=== PATIENT | male | born 1950 | race Caucasian/White ===

== ENCOUNTER 2016-12-09 20:42 | Observation (INO) | payer MEDICARE ==
[~2016-12-09] VITALS: Ht 180.3 cm; Wt 76.0 kg
[~2016-12-09 20:42] MED LIST: ADAL1INJ; CIAL20TA PO; LISI10TA PO
[2016-12-09 20:44] VITALS: BP 142/77; PULSE 85; RESP 20; TEMP 98; O2SAT 98
[2016-12-09] MEDS ORDERED: HUMI40KI SQ (20:51)
[2016-12-09] MEDS ORDERED: CIAL20TA PO (20:51)
[2016-12-09 21:01] VITALS: RESP 20; O2SAT 98
--- NOTE | 2016-12-09 21:01 | PD ---
HPI Chief Complaint: Syncope/Near-Syncope Time Seen by Provider: 20:53 Travel History International Travel<30 days: No Contact w/Intl Traveler<30days: No Traveled to known affect area: No History of Present Illness HPI The patient is a 66 year old male who presents to the [facility] emergency department with a history of lightheaded sensation and diaphoresis that began suddenly when he was out playing golf today. He reports that at approximately 11 AM, he had his last meal which consisted of a breakfast sandwich. He reports that at noon he had 2 alcoholic beverages and none since then. He reports that normally he eats dinner around 5:00, however he did not eat his dinner today. The patient proceeded to have 3 witnessed syncopal events. The third witnessed event was in front of ambulance services. The patient's initial blood pressure on arrival was in the 90s systolic. 2 IVs were placed in bilateral upper extremities and the patient was started on normal saline wide open. The patient reports that he began to feel better when he got into the air conditioning of the ambulance. He denies having any chest pain, chest pressure, shortness of breath, palpitations, nausea, vomiting, or diarrhea. He reports that he did have 2 softer than usual stools earlier today. He denies having any blood in his stool or black or tarry stools. Otherwise, on review of systems, he denies any recent fevers, cough, congestion, neck pain, abdominal pain, urinary symptoms, one-sided weakness, slurred speech, difficulty with word finding ability, vision changes, facial droop, or numbness or tingling to his extremities. [facility] Past Medical History Narrative Medical The patient's past medical history is significant for psoriasis for which she has been on Humira for the last 3 years, history of hypertension currently on lisinopril. He denies having any recent changes in the dose. 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 Cardiovascular Problems: Yes (HTN) Past Surgical History Narrative Surgical The patient's past surgical history is significant for Social History Alcohol Use: Yes Tobacco Use: No Substance Use: No Allergies-Medications (Allergen,Severity, Reaction): Coded Allergies: Tetanus Toxoid (Verified Allergy, Severe, SWELLING INJECTION SITE, 12/09/16 ) Reported Meds & Prescriptions Reported Meds & Active Scripts Active Lisinopril-Hctz 10-12.5 Mg Tab 1 Tab PO DAILY Reported Cialis (Tadalafil) 20 Mg Tab 20 Mg PO DAILY PRN Do not exceed 1 dose/day. Humira 2-Pack Inj (Adalimumab 2-Pack Inj) 40 Mg/0.8 Ml Syr 40 Mg SQ Q14D Review of Systems Except as stated in HPI: all other systems reviewed are Neg General / Constitutional: No: Fever Eyes: No: Visual changes HENT: No: Headaches Cardiovascular: Positive: Diaphoresis, Syncope, No: Chest Pain or Discomfort Respiratory: No: Shortness of Breath Gastrointestinal: No: Abdominal Pain Genitourinary: No: Dysuria Musculoskeletal: No: Pain Skin: No Rash Neurologic: Positive: Weakness (generalized weakness prior to syncope), Dizziness, Syncope, No: Focal Abnormalities, Change in Mentation, Slurred Speech, Sensory Disturbance Psychiatric: No: Depression Endocrine: No: Polydipsia Hematologic/Lymphatic: No: Easy Bruising Physical Exam Narrative General: The patient is a well-developed well-nourished male in no acute distress. Head and Neck exam: Head is normocephalic atraumatic. Eyes: EOMI, pupils are equal round and reactive to light. Nose: Midline septum with pink mucous membranes Mouth: Dentition unremarkable. Moist mucus membranes. Posterior oropharynx is not erythematous. No tonsillar hypertrophy. Uvula midline. Airway patent. Neck: No palpable lymphadenopathy. No nuchal rigidity. No thyromegaly. Cardiovascular: Regular rate and rhythm without murmurs, gallops, or rubs. No pulse deficit to the extremities and simultaneous auscultation and palpation of his radial artery. Lungs: Clear to auscultation bilaterally. No wheezes, rhonchi, or rales. Abdomen: Soft, without tenderness to palpation in all 4 quadrants of the abdomen. No guarding, rebound, or rigidity. Normal bowel sounds are audible. No tenderness on palpation of McBurney's point. Negative [place] sign. Extremities: No clubbing, cyanosis, or edema. 2+ pulses in all 4 extremities. No calf tenderness on palpation. Back: No spinous process tenderness to palpation. No costovertebral angle tenderness to palpation. Neurologic Exam: Grossly nonfocal. Skin Exam: No rash noted. Intact skin that is warm and dry. Data Data Last Documented VS Vital Signs Date Time Temp Pulse Resp B/P Pulse Ox O2 Delivery O2 Flow Rate FiO2 12/09/16 22:00 78 20 130/80 98 Room Air 12/09/16 20:44 98.0 Orders Electrocardiogram (12/09/16 20:53) Complete Blood Count With Diff (12/09/16 20:53) Comprehensive Metabolic Panel (12/09/16 20:53) Creatine Kinase (Cpk) (12/09/16 20:53) Ckmb (Isoenzyme) Profile (12/09/16 20:53) Troponin I (12/09/16 20:53) B-Type Natriuretic Peptide (12/09/16 20:53) Prothrombin Time / Inr (Pt) (12/09/16 20:53) Act Partial Throm Time (Ptt) (12/09/16 20:53) Lipase (12/09/16 20:53) Urinalysis - C+S If Indicated (12/09/16 20:53) D-Dimer (12/09/16 20:53) Magnesium (Mg) (12/09/16 20:53) Thyroid Stimulating Hormone (12/09/16 20:53) Chest, Single Ap (12/09/16 20:53) Iv Access Insert/Monitor (12/09/16 20:53) Ecg Monitoring (12/09/16 20:53) Oximetry (12/09/16 20:53) Potassium Chloride (Kcl) (12/09/16 22:00) Sodium Chlor 0.9% 1000 Ml Inj (Ns 1000 M (12/09/16 22:00) Admit Order (Ed Use Only) (12/09/16 22:34) Alcohol (Ethanol) (12/09/16 21:00) Labs Laboratory Tests Test 12/09/16 12/09/16 21:00 21:12 White Blood Count 6.9 TH/MM3 Red Blood Count 3.87 MIL/MM3 Hemoglobin 13.3 GM/DL Hematocrit 38.8 % Mean Corpuscular Volume 100.2 FL Mean Corpuscular Hemoglobin 34.3 PG Mean Corpuscular Hemoglobin 34.2 % Concent Red Cell Distribution Width 12.7 % Platelet Count 173 TH/MM3 Mean Platelet Volume 7.6 FL Neutrophils (%) (Auto) 65.8 % Lymphocytes (%) (Auto) 23.1 % Monocytes (%) (Auto) 8.0 % Eosinophils (%) (Auto) 2.2 % Basophils (%) (Auto) 0.9 % Neutrophils # (Auto) 4.5 TH/MM3 Lymphocytes # (Auto) 1.6 TH/MM3 Monocytes # (Auto) 0.5 TH/MM3 Eosinophils # (Auto) 0.2 TH/MM3 Basophils # (Auto) 0.1 TH/MM3 CBC Comment DIFF FINAL Differential Comment Sodium Level 136 MEQ/L Potassium Level 3.4 MEQ/L Chloride Level 100 MEQ/L Carbon Dioxide Level 27.5 MEQ/L Anion Gap 9 MEQ/L Blood Urea Nitrogen 9 MG/DL Creatinine 0.99 MG/DL Estimat Glomerular Filtration 76 ML/MIN Rate Random Glucose 111 MG/DL Calcium Level 8.8 MG/DL Magnesium Level 1.7 MG/DL Total Bilirubin 0.5 MG/DL Aspartate Amino Transf 20 U/L (AST/SGOT) Alanine Aminotransferase 21 U/L (ALT/SGPT) Alkaline Phosphatase 50 U/L Total Creatine Kinase 40 U/L Troponin I LESS THAN 0.02 NG/ML B-Type Natriuretic Peptide 18 PG/ML Total Protein 6.6 GM/DL Albumin 3.3 GM/DL Lipase 126 U/L Thyroid Stimulating Hormone 1.550 uIU/ML 3rd Gen Ethyl Alcohol Level 4 MG/DL Prothrombin Time 11.4 SEC Prothromb Time International 1.0 RATIO Ratio Activated Partial 25.3 SEC Thromboplast Time D-Dimer Quantitative (PE/DVT) 0.37 MG/L [facility]U [facility] Medical Decision Making Medical Screen Exam Complete: Yes Emergency Medical Condition: Yes Medical Record Reviewed: Yes Interpretation(s) Last Impressions Chest X-Ray 12/09/162052 Signed Impressions: Service Date/Time: Friday, December 09, 2016 20:49 - CONCLUSION: No acute disease. Finesse Whitley MD Differential Diagnosis Cardiac arrhythmia, versus orthostatic hypotension, versus vasovagal syncope, versus acute coronary syndrome Narrative Course During the course of the patients emergency department visit, the patients history, examination, and differential diagnosis were reviewed with the patient. The patient had IV access obtained and blood work sent for analysis. The patient was placed on a personnel monitor with oximetry and blood pressure monitoring. An ECG was done on arrival. The patient's ECG reveals a sinus rhythm heart rate of 84, nonspecific ST-T wave abnormalities, ST downsloping in V1, V2, T waves inverted in V1. QRS duration is 94 ms, QTC 422 ms. orthostatic vital signs were done and reportedly negative. The patient was provided by ambulance services 162 mg of aspirin by mouth, normal saline wide open. The patients laboratory studies were reviewed and remarkable for a white count of 6.9, hemoglobin 13.3, platelets 173 with a normal differential, CMP is remarkable for potassium of 3.4 which was supplemented orally, glucose 111, CPK 40, troponin I less than 0.02, BNP is 18, albumin 3.3, lipase 126, TSH 1.55, PT 11.4, PTT 25.3, d-dimer 0.37 decreased the likelihood of pulmonary embolism in this patient with no other significant risk factors Radiology studies were reviewed and remarkable for a chest x-ray that shows no acute disease. The patient will be admitted to the hospital for evaluation of recurrent syncopal events. The patients results were discussed with the patient, including the plan of care. I explained that further testing and/ or monitoring is indicated based on the patients history, examination, and/ or laboratory findings. Therefore, I recommended admission for additional evaluation. The patient expressed understanding and was agreeable with this plan. The patient was admitted to the hospital in stable condition and sent to a bed under the care of the family practice residents as the patient is followed by them for his primary care. Physician Communication Physician Communication The patient's case was discussed with the family practice residents who did agree to admit the patient for further evaluation and treatment at this time. Diagnosis Primary Impression: Syncope and collapse Admitting Information Admitting Physician Requests: Observation Cleopatra Watson MD Dec 09, 2016 21:01
[2016-12-09 21:02] VITALS: BP_SYST 122; BP_SYST 124; BP_SYST 127; BP_DIAS 66; BP_DIAS 69; BP_DIAS 74; RESP 20; RESP 26; RESP 27
--- NOTE | 2016-12-09 21:07 | RADRPT ---
EXAM DATE/TIME: 12/09/2016 20:49 [facility] COMPARISON: No previous studies available for comparison. INDICATIONS : Syncope MEDICAL HISTORY : None. SURGICAL HISTORY : None. ENCOUNTER: Initial ACUITY: 1 day PAIN SCORE: 0/10 LOCATION: chest FINDINGS: A single view of the chest demonstrates the lungs to be symmetrically aerated without evidence of mas s, infiltrate or effusion. The cardiomediastinal contours are unremarkable. Osseous structures are intact. CONCLUSION: No acute disease. Finesse Whitley MD on December 09, 2016 at 21:04 Board Certified Radiologist. This report was verified electronically.
[2016-12-09 21:16] LABS: AUTOMATED NEUTROPHIL # 4.5 TH/MM3 (1.8-7.7); BASOPHIL # 0.1 TH/MM3 (0-0.2); BASOPHIL % 0.9 % (0.0-2.0); EOSINOPHIL # 0.2 TH/MM3 (0-0.4); EOSINOPHIL % 2.2 % (0.0-4.0); HEMATOCRIT 38.8 % (39.0-51.0); HEMO FLAGS DIFF FINAL; LYMPH % 23.1 % (9.0-44.0); LYMPHOCYTE # 1.6 TH/MM3 (1.0-4.8); MEAN CELL VOLUME 100.2 FL (80.0-100.0); MEAN CORPUSCULAR HEMOGLOBIN 34.3 PG (27.0-34.0); MEAN CORPUSCULAR HGB CONC 34.2 % (32.0-36.0); NEUT % 65.8 % (16.0-70.0); PLATELET COUNT 173 TH/MM3 (150-450); RED BLOOD COUNT 3.87 MIL/MM3 (4.50-5.90); RED CELL DISTRIBUTION WIDTH 12.7 % (11.6-17.2); WHITE BLOOD COUNT 6.9 TH/MM3 (4.0-11.0)
[2016-12-09 21:42] LABS: ALT (GPT) 21 U/L (12-78); ANION GAP 9 MEQ/L (5-15); AST (GOT) 20 U/L (15-37); BICARBONATE 27.5 MEQ/L (21.0-32.0); BLOOD UREA NITROGEN 9 MG/DL (7-18); CHLORIDE 100 MEQ/L (98-107); GLOMERULAR FILTRATION RATE 76 ML/MIN (>89); MAGNESIUM 1.7 MG/DL (1.5-2.5); POTASSIUM 3.4 MEQ/L (3.5-5.1); SODIUM (NA) 136 MEQ/L (136-145)
[2016-12-09 21:52] LABS: ALKALINE PHOSPHATASE 50 U/L (45-117); TOTAL BILIRUBIN ADULT 0.5 MG/DL (0.2-1.0)
[2016-12-09 21:55] LABS: CREATINE KINASE 40 U/L (39-308)
[2016-12-09 22:00] VITALS: BP 130/80; PULSE 78; RESP 20; O2SAT 98
[2016-12-09] MEDS ORDERED: SODIUM CHLOR 0.9% 1000 ML INJ 1,000 ML IV ONE (22:00)
[2016-12-09] MEDS ORDERED: POTASSIUM CHLORIDE 20 MEQ CONTROLLED RELEASE TAB PO ONE (22:00)
[2016-12-09 22:02] LABS: APTT (PATIENT) 25.3 SEC (24.3-30.1); PROTHROMBIN TIME - PATIENT 11.4 SEC (9.8-11.6)
[2016-12-09 23:00] VITALS: BP 157/82; PULSE 78; RESP 22; O2SAT 97
[2016-12-09 23:08] VITALS: O2SAT 98
--- NOTE | 2016-12-09 23:14 | HHI.HP ---
[facility] Service Family Medicine Primary Care Physician Sg Hamitlon MD Admission Diagnosis Recurrent Syncopal events today Diagnoses: Chief Complaint: got overheated while playing putt-putt golf International Travel<30 Days: No Contact w/Intl Traveler<30days: No Known Affected Area: No History of Present Illness 66 YO male w/PMHx psoriasis, HTN, left IT band syndrome, diverticulosis and alcohol use presents with multiple syncopal events after getting lightheaded and diaphoretic while playing putt-putt golf today. Pt admits to drinking one beer w/o eating today when he began feeling lightheaded and sat down on a bench , then skinned his knees after standing and getting lightheaded again, but did not hit his head or lose consciousness. States he has had one pre-syncopal and one syncopal episode in the past. The first was exertional when he was exercising in the gym; the second occurred when he was arguing with his girlfriend on the phone and passed out. Pt endorses drinking 2-3 beers per day but states he prefers 6 oz of spiced rum during the day. Admits to drinking one beer and one mimosa this morning. Pt has no reported seizure activity. Pt gets regular checkups and labs drawn with his Humira and notes no blood problems. Last Humira shot on Sat; took HCTZ-lisinopril this morning; last Cialis was a couple of weeks ago (takes ~1x per month); takes OTC turmeric for IT band pain. Denies CP, SOB, palpitations, N/V/D, dark, tarry stools, blood during a BM, and dysuria. Transported to ED after 3x syncopal episodes. Given 1L NS and 20 meq KCL in ED, ASA 162 mg during transport. ECG in ED shows ST and T wave abnormalities with some minor depression. EtOH @ 4. Pt conversant and in NAD in ED, with slightly elevated BP in 157/82 range, other VS wnl. Review of Systems Constitutional: COMPLAINS OF: Diaphoretic episodes, Dizziness Endocrine: DENIES: Heat/cold intolerance, Polydipsia, Polyuria, Polyphagia Eyes: DENIES: Blurred vision, Diplopia, Eye inflammation, Eye pain, Vision loss , Photosensitivity, Double Vision Ears, nose, mouth, throat: DENIES: Tinnitus, Hearing loss, Vertigo, Nasal discharge, Oral lesions, Throat pain, Hoarseness, Ear Pain, Running Nose, Epistaxis, Sinus Pain, Toothache, Odynophagia Respiratory: DENIES: Apneas, Cough, Snoring, Wheezing, Hemoptysis, Sputum production, Shortness of breath Cardiovascular: DENIES: Chest pain, Palpitations, Syncope, Dyspnea on Exertion , PND, Lower Extremity Edema, Orthopnea, Claudication Gastrointestinal: DENIES: Abdominal pain, Black stools, Bloody stools, Constipation, Diarrhea, Nausea, Vomiting, Difficulty Swallowing, Anorexia Genitourinary: DENIES: Sexual dysfunction, Urinary frequency, Urinary incontinence, Urgency, Hematuria, Dysuria, Nocturia, Penile Discharge, Testicular Pain, Testicular Swelling Musculoskeletal: COMPLAINS OF: Joint pain (Left IT band pain) Integumentary: DENIES: Abnormal pigmentation, Nail changes, Pruritus, Rash Hematologic/lymphatic: DENIES: Bruising, Lymphadenopathy Neurologic: DENIES: Abnormal gait, Headache, Localized weakness, Paresthesias, Seizures, Speech Problems, Tremor, Poor Balance Psychiatric: DENIES: Anxiety, Confusion, Mood changes, Depression, Hallucinations, Agitation, Suicidal Ideation, Homicidal Ideation, Delusions Past Family Social History Past Surgical History Right leg Allergies: Coded Allergies: Tetanus Toxoid (Verified Allergy, Severe, SWELLING INJECTION SITE, 12/09/16 ) Family History Mom age 76 - ovarian cancer Father age 62 - lung cancer Social History EtOH - 2-3 beers per day Tobacco - former smoker, stopped 12 yrs ago Other drugs - no Physical Exam Vital Signs Vital Signs Date Time Temp Pulse Resp B/P Pulse Ox O2 Delivery O2 Flow Rate FiO2 12/09/16 21:09 Room Air 12/09/16 21:02 81 20 127/66 79 26 122/69 89 27 124/74 12/09/16 21:01 20 98 Room Air 12/09/16 20:44 98.0 85 20 142/77 98 Physical Exam GENERAL: This is a well-nourished, well-developed patient, in no apparent distress. SKIN: No rashes or ecchymoses. Cool and dry. Bilateral knee abrasions from fall today. HEAD: Atraumatic. Normocephalic. EYES: Pupils equal round and reactive. Extraocular motions intact. No scleral icterus. No injection or drainage. ENT: Nose without bleeding or drainage. MMM. NECK: Trachea midline. No JVD or lymphadenopathy. No meningeal signs. CARDIOVASCULAR: RRR without murmurs, gallops, or rubs. RESPIRATORY: Clear to auscultation. Breath sounds equal bilaterally w/no increased WOB. No wheezes, rales, or rhonchi. GASTROINTESTINAL: Abdomen soft, non-tender, nondistended. No hepato-splenomegaly , or palpable masses. No guarding. MUSCULOSKELETAL: Extremities without clubbing, cyanosis, or edema. No joint tenderness, effusion, or edema noted. No calf tenderness. NEUROLOGICAL: Awake and alert. Cranial nerves II through XII intact. Motor and sensory grossly within normal limits. Normal speech. Laboratory Laboratory Tests Test 12/09/16 12/09/16 21:00 21:12 White Blood Count 6.9 Red Blood Count 3.87 Hemoglobin 13.3 Hematocrit 38.8 Mean Corpuscular Volume 100.2 Mean Corpuscular Hemoglobin 34.3 Mean Corpuscular Hemoglobin 34.2 Concent Red Cell Distribution Width 12.7 Platelet Count 173 Mean Platelet Volume 7.6 Neutrophils (%) (Auto) 65.8 Lymphocytes (%) (Auto) 23.1 Monocytes (%) (Auto) 8.0 Eosinophils (%) (Auto) 2.2 Basophils (%) (Auto) 0.9 Neutrophils # (Auto) 4.5 Lymphocytes # (Auto) 1.6 Monocytes # (Auto) 0.5 Eosinophils # (Auto) 0.2 Basophils # (Auto) 0.1 CBC Comment DIFF FINAL Differential Comment Sodium Level 136 Potassium Level 3.4 Chloride Level 100 Carbon Dioxide Level 27.5 Anion Gap 9 Blood Urea Nitrogen 9 Creatinine 0.99 Estimat Glomerular Filtration 76 Rate Random Glucose 111 Calcium Level 8.8 Magnesium Level 1.7 Total Bilirubin 0.5 Aspartate Amino Transf 20 (AST/SGOT) Alanine Aminotransferase 21 (ALT/SGPT) Alkaline Phosphatase 50 Total Creatine Kinase 40 Troponin I LESS THAN 0.02 B-Type Natriuretic Peptide 18 Total Protein 6.6 Albumin 3.3 Lipase 126 Thyroid Stimulating Hormone 1.550 3rd Gen Prothrombin Time 11.4 Prothromb Time International 1.0 Ratio Activated Partial 25.3 Thromboplast Time D-Dimer Quantitative (PE/DVT) 0.37 Result Diagram: 12/09/16209912/09/162099 Septic Shock Reassessment Heart: Regular rate and rhythm Lungs: Clear Skin: Warm, Dry Peripheral Pulses: Weak Left Radial Capillary Refill: <2 seconds Assessment and Plan Assessment and Plan 66 YO male w/PMHx psoriasis, HTN, left IT band syndrome, diverticulosis and alcohol use presents with multiple syncopal events today of unclear etiology. Consider ACS r/o vs dehydration (hypovolemia) vs carotid stenosis vs new onset transient arrhythmia vs vasovagal event. - FEN/GI: Heart healthy diet - Ppx: SCDs, Lovenox 40 mg, KCL 20 meq for K+ @ 3.4 -- Check CMP, CBC in AM - Dispo: home Plan dw Dr Corky Lema Code Status Full Problem List: (1) Syncope and collapse Status: Acute Plan: - ACS r/o--abnormal ECG, but asymptomatic w/o CP or palpitations -- Trend trops (1st neg at 0.02 @ 2100 hrs) -- Abnormal ECG w/ST and T wave depression -- Echo 2D ordered -- ASA 162 mg PO given during transport by EMS -- No CP, morphine and nitro ordered PRN for now -- Satting 98% on RA, supplemental O2 ordered PRN for now -- Continuous telemetry during OBS -- Consider Holter monitor as outpt - Carotid stenosis -- Carotid artery US - Vasovagal event -- Consider Holter monitor as indicated above (2) Alcohol abuse Status: Acute Plan: - EtOH in ED @ 4 - AST/ALT both wnl; INR 1.0 - Place on CIWA as precaution (3) Benign essential hypertension Status: Chronic Plan: - Pt took HCTZ-lisinopril this morning w/o any other fluids except 1 beer and 1 mimosa - NS 1L bolus in ED - BP 130/80 @ 2200 - Continue HCTZ-lisinopril (4) IT band syndrome Status: Acute Plan: - PT/OT to assess Problem Qualifiers (1) IT band syndrome: Qualified Code: M76.32 - IT band syndrome, left Blanke,Rob Caputo MD R1 Dec 09, 2016 23:14
[2016-12-09] MEDS ORDERED: DOCUSATE SODIUM 50 MG/SENNA 8.6 MG TAB PO PRN (23:15)
[2016-12-09] MEDS ORDERED: ACETAMINOPHEN 325 MG TAB PO PRN (23:15)
[2016-12-09] MEDS ORDERED: ONDANSETRON HCL 4 MG/2 ML VIAL IV PRN (23:15)
[2016-12-09] MEDS ORDERED: SODIUM CHLORIDE 0.9% FLUSH 10 ML FLUSH IV FLUSH PRN (23:15)
[2016-12-09] MEDS ORDERED: cloNIDine HCL 0.1 MG TAB PO PRN (23:30)
[2016-12-09] MEDS ORDERED: LORazepam 1 MG TAB PO PRN (23:30)
[2016-12-09] MEDS ORDERED: LORazepam 2 MG TAB PO PRN (23:30)
[2016-12-09] MEDS ORDERED: NITROGLYCERIN 0.4 MG SL 25 TABS/BTL SL PRN (23:30)
[2016-12-09] MEDS ORDERED: LORazepam 2 MG/ML VIAL IV PUSH PRN ×4 (23:30)
[2016-12-09] MEDS ORDERED: FLUMAZENIL 0.5 MG/5 ML VIAL IV PUSH PRN (23:30)
[2016-12-09] MEDS ORDERED: MORPHINE SULFATE 4 MG/ML INJ IV PRN (23:30)
[2016-12-10] VITALS (8 sets, daily range): BP systolic 98–138; BP diastolic 59–69; PULSE 68–79; RESP 14–20; TEMP 97.9–98.2; O2SAT 92–99
[2016-12-10 00:28] LABS: BACTERIA, URINE RARE /hpf; BLOOD, URINE NEG (NEG); GLUCOSE,URINE NEG (NEG); HYALINE CAST, URINE 11 /lpf (RARE); KETONE, URINE NEG (NEG); MUCUS URINE FEW /lpf (OCC); NITRITE,URINE NEG (NEG); SQUAMOUS EPITHELIAL CELL URINE <1 /hpf (0-5); URINE COLOR YELLOW (YELLW/STRAW)
[2016-12-10 00:29] LABS: COMMENT (UR) CULT NOT INDICATED; CULTURE IF INDICATED CULT NOT INDICATED
[2016-12-10 00:51] LABS: AMPHETAMINE, URINE NEG (NEG); BARBITURATES, URINE NEG (NEG); COCAINE, URINE NEG (NEG)
[2016-12-10 04:53] LABS: CREATINE KINASE 47 U/L (39-308)
--- NOTE | 2016-12-10 07:00 | EKG ---
Date Performed: 12/09/2016 Time Performed: 20:51:25 PTAGE: 66 years EKG: Sinus rhythm NORMAL ECG NO PREVIOUS TRACING DOCTOR: Richard Wills Interpretating Date/Time 12/10/2016 06:59:13
[2016-12-10 07:18] LABS: AUTOMATED NEUTROPHIL # 5.1 TH/MM3 (1.8-7.7); BASOPHIL % 0.6 % (0.0-2.0); EOSINOPHIL # 0.1 TH/MM3 (0-0.4); EOSINOPHIL % 1.4 % (0.0-4.0); HEMATOCRIT 36.7 % (39.0-51.0); HEMO FLAGS DIFF FINAL; LYMPH % 16.7 % (9.0-44.0); LYMPHOCYTE # 1.2 TH/MM3 (1.0-4.8); MEAN CELL VOLUME 100.1 FL (80.0-100.0); MEAN CORPUSCULAR HEMOGLOBIN 34.6 PG (27.0-34.0); MEAN CORPUSCULAR HGB CONC 34.6 % (32.0-36.0); MONO % 8.6 % (0.0-8.0); NEUT % 72.7 % (16.0-70.0); PLATELET COUNT 153 TH/MM3 (150-450); RED BLOOD COUNT 3.67 MIL/MM3 (4.50-5.90); RED CELL DISTRIBUTION WIDTH 12.8 % (11.6-17.2); WHITE BLOOD COUNT 6.9 TH/MM3 (4.0-11.0)
[2016-12-10 07:47] LABS: ANION GAP 9 MEQ/L (5-15); AST (GOT) 19 U/L (15-37); BICARBONATE 25.6 MEQ/L (21.0-32.0); BLOOD UREA NITROGEN 8 MG/DL (7-18); CHLORIDE 103 MEQ/L (98-107); GLOMERULAR FILTRATION RATE 115 ML/MIN (>89); MAGNESIUM 1.8 MG/DL (1.5-2.5); POTASSIUM 4.1 MEQ/L (3.5-5.1); SODIUM (NA) 138 MEQ/L (136-145)
[2016-12-10 07:50] LABS: ALKALINE PHOSPHATASE 52 U/L (45-117); ALT (GPT) 20 U/L (12-78); TOTAL BILIRUBIN ADULT 0.9 MG/DL (0.2-1.0)
--- NOTE | 2016-12-10 08:40 | EKG ---
Date Performed: 12/10/2016 Time Performed: 03:56:19 PTAGE: 66 years EKG: Sinus rhythm NORMAL ECG PREVIOUS TRACING : 12/09/2016 20.51 No significant change from previous tracing noted. DOCTOR: Richard Wills Interpretating Date/Time 12/10/2016 08:39:44
[2016-12-10] MEDS ORDERED: SODIUM CHLORIDE 0.9% FLUSH 10 ML FLUSH IV FLUSH SCH (09:00)
[2016-12-10] MEDS ORDERED: NON-FORMULARY DRUG (Lisinopril-Hctz 1 TAB) PO SCH (09:00)
[2016-12-10] MEDS ORDERED: THIAMINE HCL 100 MG TAB PO SCH (09:00)
[2016-12-10] MEDS ORDERED: FOLIC ACID 1 MG TAB PO SCH (09:00)
[2016-12-10] MEDS ORDERED: MULTIVITAMINS/MINERALS THERAPEUTIC TAB PO SCH (09:00)
[2016-12-10] MEDS ORDERED: LISINOPRIL 10 MG TAB PO SCH (09:00)
[2016-12-10] MEDS ORDERED: HYDROCHLOROTHIAZIDE 25 MG TAB PO SCH (09:00)
--- NOTE | 2016-12-10 09:16 | RADRPT ---
EXAM DATE/TIME: 12/10/2016 08:27 [facility] COMPARISON: No previous studies available for comparison. INDICATIONS : Syncope. MEDICAL HISTORY : Hypertension. SURGICAL HISTORY : Colectomy. Right leg surgery. ENCOUNTER: Initial ACUITY: 2 days PAIN SCORE: 0/10 LOCATION: Bilateral neck PEAK SYSTOLIC VELOCITIES (cm/sec): ICA/CCA RATIO: Right: 1.2 Left: 0.8 ICA: Right: 107 Left: 87 CCA: Right: 90 Left: 103 ECA: Right: 77 Left: 102 VERTEBRAL: Right: 36 antegrade Left: 56 antegrade Elevated flow velocities and ICA/CCA ratios have been found to correlate with increased degrees of vessel stenosis, calculated as percentage of diameter relative to a normal segment of distal ICA/CCA FINDINGS: RIGHT CAROTID: There is no evidence for a hemodynamically significant carotid stenosis. Minimal intimal hyperplasia is present with scattered calcific plaque. LEFT CAROTID: There is no evidence for a hemodynamically significant carotid stenosis. Minimal intimal hyperplasia is present with scattered calcific plaque. VERTEBRAL ARTERIES: Flow is antegrade in both vertebral arteries. MISCELLANEOUS: There are no ancillary masses or adenopathy. CONCLUSION: Negative examination for a hemodynamically significant carotid stenosis. Kevin Macdonald MD FACR. Kevin Macdonald MD FACR on December 10, 2016 at 9:14 Board Certified Radiologist. This report was verified electronically.
[2016-12-10] MEDS ORDERED: ENOXAPARIN SODIUM 40 MG/0.4 ML SYRINGE SQ SCH (10:00)
--- NOTE | 2016-12-10 13:41 | HHI.DCPOC ---
Discharge Care Plan Diagnosis: (1) Syncope and collapse Goals to Promote Your Health * To prevent worsening of your condition and complications * To maintain your health at the optimal level Follow up with PCP Directions to Meet Your Goals Take your medications as prescribed Follow your dietary instruction Follow activity as directed Keep your appointments as scheduled Take your immunizations and boosters as scheduled If your symptoms worsen call your PCP, if no PCP go to Urgent Care Center or Emergency Room Smoking is Dangerous to Your Health. Avoid second hand smoke Call the 24-hour hour crisis hotline for domestic abuse at Sanchez Marx MD R2 Dec 10, 2016 13:41
--- NOTE | 2016-12-10 13:44 | HHI.FPPN ---
Subjective Remarks Patient seen and examined this morning. Denies nausea, vomiting, fever, chills, chest pain, shortness of breath, change in bowel habits, change in urinary habits. No changes overnight. Patient denies any further lightheadedness, dizziness, loss of consciousness. Patient states that he has no other complaints at this time. He stated that he believes his syncope yesterday was due to being outside in the heat for such a long time with limited water intake. (Isaac Correa MD R1) Objective Vitals Vital Signs Date Time Temp Pulse Resp B/P Pulse Ox O2 Delivery O2 Flow Rate FiO2 12/10/16 12:38 98.1 74 15 98/59 99 12/10/16 08:01 92 21 12/10/16 08:00 68 12/10/16 07:18 97.9 69 14 112/65 95 12/10/16 04:10 68 12/10/16 03:48 98.2 77 18 122/69 97 12/10/16 01:49 74 12/10/16 01:33 98.1 79 20 138/69 98 12/09/16 23:08 98 12/09/16 23:00 78 22 157/82 97 Room Air 12/09/16 22:00 78 20 130/80 98 Room Air 12/09/16 21:09 Room Air 12/09/16 21:02 81 20 127/66 79 26 122/69 89 27 124/74 12/09/16 21:01 20 98 Room Air 12/09/16 20:44 98.0 85 20 142/77 98 (Isaac Correa MD R1) Result Diagram: 12/10/16 0605 12/10/16 0605 Imaging Last Impressions Carotid Artery Ultrasound 12/10/16 0000 Signed Impressions: Service Date/Time: Saturday, December 10, 2016 08:27 - CONCLUSION: Negative examination for a hemodynamically significant carotid stenosis. Kevin Macdonald MD Chest X-Ray 12/09/162052 Signed Impressions: Service Date/Time: Friday, December 09, 2016 20:49 - CONCLUSION: No acute disease. Finesse Whitley MD Objective Remarks GENERAL: Pleasant, seated, in no apparent distress. SKIN: Warm and dry. HEAD: Atraumatic. Normocephalic. EYES: Pupils equal and round. No scleral icterus. No injection or drainage. ENT: No nasal bleeding or discharge. Mucous membranes pink and moist. NECK: Trachea midline. No JVD. CARDIOVASCULAR: Regular rate and rhythm. RESPIRATORY: No accessory muscle use. Clear to auscultation. Breath sounds equal bilaterally. GASTROINTESTINAL: Abdomen soft, non-tender, nondistended. Hepatic and splenic margins not palpable. MUSCULOSKELETAL: Extremities without clubbing, cyanosis, or edema. No obvious deformities. NEUROLOGICAL: Awake and alert. No obvious cranial nerve deficits. Motor grossly within normal limits. Five out of 5 muscle strength in the arms and legs. Normal speech. PSYCHIATRIC: Appropriate mood and affect; insight and judgment normal. Medications and IVs Current Medications Medications (Trade) Dose Ordered Sig/Tarah Route Start Time Stop Time Status Last Admin (Prinivil) 10 mg DAILY PO 12/10/16 09:00 12/10/16 08:11 (Hydrodiuril) 12.5 mg DAILY PO 12/10/16 09:00 12/10/16 08:11 (NS Flush) 2 ml UNSCH PRN IV FLUSH 12/09/16 23:15 (NS Flush) 2 ml BID IV FLUSH 12/10/16 09:00 12/10/16 08:12 (Tylenol) 650 mg Q4H PRN PO 12/09/16 23:15 (Zofran Inj) 4 mg Q6H PRN IV 12/09/16 23:15 (Siobhan-Colace) 1 tab BID PRN PO 12/09/16 23:15 (Folate) 1 mg DAILY PO 12/10/16 09:00 12/15/16 08:59 12/10/16 08:11 (Vitamin B1) 100 mg DAILY PO 12/10/16 09:00 12/10/16 08:11 (Theragran M Tab) 1 tab DAILY PO 12/10/16 09:00 12/15/16 08:59 12/10/16 08:11 (Catapres) 0.1 mg Q6H PRN PO 12/09/16 23:30 (Romazicon Inj) 0.2 mg Q1M PRN IV PUSH 12/09/16 23:30 (Ativan) 1 mg Q4H PRN PO 12/09/16 23:30 (Ativan Inj) 1 mg Q4H PRN IV PUSH 12/09/16 23:30 (Ativan) 2 mg Q2H PRN PO 12/09/16 23:30 (Ativan Inj) 2 mg Q2H PRN IV PUSH 12/09/16 23:30 (Ativan Inj) 2 mg Q1H PRN IV PUSH 12/09/16 23:30 (Ativan Inj) 2 mg Q15M PRN IV PUSH 12/09/16 23:30 (Nitrostat Sl) 0.4 mg Q5M PRN SL 12/09/16 23:30 (Morphine Inj) 2 mg Q30M PRN IV 12/09/16 23:30 (Lovenox Inj) 40 mg Q24H SQ 12/10/16 10:00 12/10/16 11:33 (Isaac Correa MD R1) A/P Assessment and Plan 66 YO male w/PMHx psoriasis, HTN, left IT band syndrome, diverticulosis and alcohol use presented with multiple syncopal events yesterday (12/09) of unclear etiology. (Isaac Correa MD R1) Attending Attestation Patients case was dicussed in detail with resident medical team,examination performed, EMR reviewed, agree with Admission, Assessment and Plan, See Orders. (Sina Lara MD) Problem List: (1) Syncope and collapse Status: Acute Plan: - ACS r/o--abnormal ECG, but asymptomatic w/o CP or palpitations -- Troponins negative x 2 -- Abnormal ECG w/ST and T wave depression -- Echo 2D completed -- ASA 162 mg PO given during transport by EMS -- Satting 98% on RA, supplemental O2 ordered PRN for now -- Continuous telemetry during OBS -- Consider Holter monitor as outpt - Carotid stenosis -- Carotid artery US without stenosis - Vasovagal event -- Consider Holter monitor as indicated above - Likely syncope secondary to combination of dehydration, alcohol ingestion and possibly vasovagal involvement as well. No emergent issues found. Patient will need to follow up with PCP outpatient. (2) Alcohol abuse Status: Acute Plan: - EtOH in ED @ 4 - AST/ALT both wnl; INR 1.0 - Was placed on CIWA as precaution - Counseled, defers additional intervention at this time (3) Benign essential hypertension Status: Chronic Plan: - BP 130/80 @ 2200 - Continue HCTZ-lisinopril (4) IT band syndrome Status: Acute Plan: - To follow up outpatient (5) FEN Status: Acute Plan: - FEN/GI: Heart healthy diet - Ppx: SCDs, Lovenox 40 mg, KCL 20 meq for K+ @ 3.4 -- Check CMP, CBC in AM - Dispo: home (Isaac Correa MD R1) Problem Qualifiers (1) IT band syndrome: Qualified Code: M76.32 - IT band syndrome, left Isaac Correa MD R1 Dec 10, 2016 13:44 Sina Lara MD Dec 10, 2016 18:39
[2016-12-10 14:14] LABS: CREATINE KINASE 48 U/L (39-308)
--- NOTE | 2016-12-10 15:40 | ECHRPT ---
Indication: syncope CONCLUSIONS Mildly dilated left ventricle. Wall thickness is normal. The left ventricular systolic function is normal with an estimated ejection fraction in the range of 55-60%. Aortic valve sclerosis is present. Mild aortic valve regurgitation. BP: 127 / 66 HR: 81 Rhythm: Sinus MEASUREMENTS (Male / Female) Normal Values Technical Quality:Good 2D ECHO LV Diastolic Diameter PLAX 4.3 cm 4.2 - 5.9 / 3.9 - 5.3 cm LV Systolic Diameter PLAX 3.4 cm IVS Diastolic Thickness 0.9 cm 0.6 - 1.0 / 0.6 - 0.9 cm LVPW Diastolic Thickness 0.8 cm 0.6 - 1.0 / 0.6 - 0.9 cm LV Relative Wall Thickness 0.4 RV Internal Dim ED PLAX 2.1 cm LA Systolic Diameter LX 3.3 cm 3.0 - 4.0 / 2.7 - 3.8 cm DOPPLER Mitral E Point Velocity 51.3 cm/s Mitral A Point Velocity 62.7 cm/s Mitral E to A Ratio 0.8 TR Peak Velocity 203.0 cm/s TR Peak Gradient 16.5 mmHg FINDINGS LEFT VENTRICLE Mildly dilated left ventricle. Wall thickness is normal. The left ventricular systolic function is normal with an estimated ejection fraction in the range of 55-60%. RIGHT VENTRICLE Normal right ventricular size and systolic function. LEFT ATRIUM The left atrial size is normal. RIGHT ATRIUM The right atrial size is normal. ATRIAL SEPTUM Normal atrial septal thickness without atrial level shunting by limited color doppler interrogation. AORTA The aortic root and proximal ascending aorta are normal in size on limited imaging. MITRAL VALVE Structurally normal mitral valve. No mitral valve stenosis or regurgitation. AORTIC VALVE Aortic valve sclerosis is present. Mild aortic valve regurgitation. TRICUSPID VALVE Structurally normal tricuspid valve. No tricuspid valve stenosis or regurgitation. PULMONARY VALVE The pulmonary valve is not well visualized. VESSELS The inferior vena cava is normal in size. PERICARDIUM No pericardial effusion. Chandan Glover MD, FACC (Electronically Signed) Final Date:10 December 2016 15:40
--- NOTE | 2016-12-11 12:06 | EKG ---
Date Performed: 12/10/2016 Time Performed: 08:53:56 PTAGE: 66 years EKG: Sinus rhythm NORMAL ECG PREVIOUS TRACING : 12/10/2016 03.56 Compared to prior tracing no significant change DOCTOR: Jaime Watson Interpretating Date/Time 12/11/2016 12:04:47
== END 2016-12-10 14:50 | disposition home or self-care (01) ==
LOC: NEPE 20:42 → NEDA 22:35 → NEPFCDU 12-10 00:15
PROVIDERS: ADMIT Family Medicine; ATTEND Family Medicine
DX: R55 Syncope and collapse (principal); M76.32 Iliotibial band syndrome, left leg; G89.29 Other chronic pain; R42 Dizziness and giddiness; R61 Generalized hyperhidrosis; R94.31 Abnormal electrocardiogram [ECG] [EKG]; F10.10 Alcohol abuse, uncomplicated; I10 Essential (primary) hypertension; I65.29 Occlusion and stenosis of unspecified carotid artery; L40.9 Psoriasis, unspecified; Z79.82 Long term (current) use of aspirin; Z87.891 Personal history of nicotine dependence
CPT/HCPCS: 71010; 80053; 80307; 81001; 82550; 83690; 83735; 83880; 84100; 84443; 84484; 85025; 85379; 85610; 85730; 93005; 93306; 93880; 97161; 99285; G0378; G8987; G8988; J1650; J7030